=== PATIENT | male | born 1980 | race Caucasian/White ===

== ENCOUNTER 2018-06-25 07:05 | Inpatient (IN) | payer MEDICAID ==
[~2018-06-25] VITALS: Ht 170.2 cm; Wt 81.1 kg
[2018-06-25] VITALS (20 sets, daily range): BP systolic 117–176; BP diastolic 60–95; PULSE 54–104; RESP 10–59; Ht 170.2 cm; Wt 81.1 kg
[2018-06-25] MEDS ORDERED: ONDANSETRON (ODT) 4 MG TAB ODT STA (07:34)
[2018-06-25] MEDS ORDERED: ONDANSETRON 4 MG INJ IV STA (08:28)
[2018-06-25] MEDS ORDERED: morphine 4 MG/ML VIAL IV STA (08:28)
[2018-06-25] MEDS ORDERED: SOD CHLORIDE 0.9% 1,000 ML IV STA (08:28)
[2018-06-25] MEDS ORDERED: PIPER-TAZO 3.375 GM IV (PMX) 100 ML IVPB ONE (08:30)
--- NOTE | 2018-06-25 08:48 | ERD ---
ER Documentation Chief Complaint Chief Complaint ABD PAIN, NAUSEA VOMITINT DIARRHEA, FEVER HPI 38 yr old male complaining of nausea and vomiting with abdominal pain. Patient has had tactile fevers. Patient took ranitidine at home but no other medications. Denies medical problems. NKDA. Surgical history denies. Social history denies ROS All systems reviewed and are negative except as per history of present illness. Allergies Allergies: Coded Allergies: No Known Allergy (Unverified , 06/25/18) PMhx/Soc Medical and Surgical Hx: pt denies Medical Hx, pt denies Surgical Hx History of Surgery: No Anesthesia Reaction: No Hx Neurological Disorder: No Hx Respiratory Disorders: No Hx Cardiac Disorders: No Hx Psychiatric Problems: No Hx Miscellaneous Medical Probl: No Hx Alcohol Use: Yes (OOC) Hx Substance Use: No Hx Tobacco Use: No Smoking Status: Never smoker FmHx Family History: No diabetes, No coronary disease, No other Physical Exam Vitals Vital Signs Date Temp Pulse Resp B/P (MAP) Pulse Ox O2 O2 Flow FiO2 Time Delivery Rate 06/25/18 98.4 54 17 136/91 99 07:09 (106) Physical Exam GENERAL: The patient is well-appearing, well-nourished, in no acute distress CHEST: Clear to auscultation bilaterally. There are no rales, wheezes or rhonchi. HEART: Regular rate and rhythm. No murmurs, clicks, rubs or gallops. No S3 or S4. ABDOMEN: Normal active bowel sounds. No distention. No organomegaly. Mild tenderness palpation in the lower pelvic region extending to the right lower quadrant. BACK: No midline or flank tenderness. Result Diagram: 06/25/18 0743 06/25/18 0743 Results 24 hrs Laboratory Tests Test 06/25/18 07:43 White Blood Count 12.8 10^3/ul Red Blood Count 4.82 10^6/ul Hemoglobin 13.7 g/dl Hematocrit 42.0 % Mean Corpuscular Volume 87.1 fl Mean Corpuscular Hemoglobin 28.4 pg Mean Corpuscular Hemoglobin Concent 32.6 g/dl Red Cell Distribution Width 12.7 % Platelet Count 177 10^3/UL Mean Platelet Volume 9.0 fl Immature Granulocytes % 0.300 % Neutrophils % 88.0 % Lymphocytes % 8.1 % Monocytes % 3.3 % Eosinophils % 0.1 % Basophils % 0.2 % Nucleated Red Blood Cells % 0.0 /100WBC Immature Granulocytes # 0.040 10^3/ul Neutrophils # 11.3 10^3/ul Lymphocytes # 1.0 10^3/ul Monocytes # 0.4 10^3/ul Eosinophils # 0.0 10^3/ul Basophils # 0.0 10^3/ul Nucleated Red Blood Cells # 0.0 10^3/ul Urine Color YELLOW Urine Clarity CLEAR Urine pH 5.0 Urine Specific [place] 1.021 Urine Ketones NEGATIVE mg/dL Urine Nitrite NEGATIVE mg/dL Urine Bilirubin NEGATIVE mg/dL Urine Urobilinogen NEGATIVE mg/dL Urine Leukocyte Esterase NEGATIVE [place]/ul Urine Hemoglobin NEGATIVE mg/dL Urine Glucose NEGATIVE mg/dL Urine Total Protein NEGATIVE mg/dl Sodium Level 140 mmol/L Potassium Level 4.6 mmol/L Chloride Level 103 mmol/L Carbon Dioxide Level 27 mmol/L Anion Gap 10 Blood Urea Nitrogen 13 mg/dl Creatinine 0.85 mg/dl Est Glomerular Filtrat Rate mL/min > 60 mL/min Glucose Level 126 mg/dl Calcium Level 9.5 mg/dl Total Bilirubin 0.2 mg/dl Direct Bilirubin 0.00 mg/dl Indirect Bilirubin 0.2 mg/dl Aspartate Amino Transf (AST/SGOT) 29 IU/L Alanine Aminotransferase (ALT/SGPT) 10 IU/L Alkaline Phosphatase 65 IU/L Total Protein 7.9 g/dl Albumin 4.8 g/dl Globulin 3.10 g/dl Albumin/Globulin Ratio 1.54 Lipase 33 U/L Current Medications Medications Dose Sig/Leola Start Time Status Last (Trade) Ordered Route PRN Stop Time Admin Dose Reason Admin Ondansetron 4 mg ONCE STAT 06/25/18 DC 06/25/18 HCl (Zofran ODT 07:34 08:09 Odt) 06/25/18 07:36 Sodium 1,000 ml @ Q1H STAT 06/25/18 Chloride 1,000 mls/hr IV 08:28 06/25/18 09:27 Morphine 4 mg ONCE STAT 06/25/18 DC Sulfate IV 08:28 (morphine) 06/25/18 08:29 Ondansetron 4 mg ONCE STAT 06/25/18 DC HCl (Zofran IV 08:28 Inj) 06/25/18 08:29 Piperacillin 100 ml @ ONCE ONCE 06/25/18 Sod/ 200 mls/hr IVPB 08:30 Tazobactam 06/25/18 08:59 Sod Ondansetron 4 mg BRIDGE ORDER 06/25/18 HCl (Zofran PRN IV 09:00 Inj) NAUSEA AND/OR 06/26/18 08:59 VOMITING 650 mg ER BRIDGE 06/25/18 Acetaminophen PRN PO MILD 09:00 (Tylenol PAIN(1-3)OR 06/26/18 08:59 Tab) ELEVATED TEMP Procedures/MDM DIAGNOSTIC IMAGING REPORT Patient: OSMIN CHAPARRO : 1980 Age: 38 Sex: M MR #: [id number] DOS: 06/25/18 0734 Ordering MD: LAN PAGAN PA-C Location: [facility] Room/Bed: PROCEDURE: CT Abdomen and Pelvis without contrast. CLINICAL INDICATION: Abdominal pain. TECHNIQUE: Routine axial tomographic images of the abdomen and pelvis were obtained from the domes the diaphragm to the symphysis pubis. The patient was scanned withoutoral or intravenous contrast. Coronal and sagittal reformatted images were obtained from the axial source images. Images were reviewed on a high-resolution PACS workstation. The total exam CTDI equals 10.02 mGy and the total exam DLP equals 557.39 mGy-cm. One or more of the following dose reduction techniques were used: Automated exposure control, adjustment of the mA and / or kV according to patient size, or use of iterative reconstruction technique. DICOM images are available. COMPARISON: None. FINDINGS: The visualized portions of the lung bases are clear. Evaluation of the intra-abdominal solid organs is somewhat limited on this noncontrast examinati on. The liver appears normal in size. There is no intra or extrahepatic biliary dilatation. The gallbladder is unremarkable by CT criteria. The spleen, pancreas, and adrenal glands are unremarkable. The kidneys are symmetric in size. No renal, ureteral, or bladder calculi are identified. No perinephric inflammatory changes are identified. The urinary bladder is grossly unremarkable. The bowel demonstrates normal course and caliber. There is no evidence of bowel obstruction. The appendix is thickened measuring 14 mm in diameter, and contains multiple appendicoliths. No significant periappendiceal fat stranding is noted. The pelvic organs are grossly unremarkable. No intraperitoneal free fluid, free air, or abscess is identified. No retroperitoneal, mesenteric, or inguinal lymphadenopathy is identified. The aorta is normal in caliber. The osseous structures demonstrate anterior fusion of the sacroiliac joints. No significant subcutaneous soft tissue abnormalities are seen. IMPRESSION: 1. Limited noncontrast CT of the abdomen and pelvis. The appendix is thickened measuring 14 mm in diameter, with multiple small appendicoliths. No significant periappendiceal inflammatory changes are noted. Findings are equivocal for acute appendicitis. Clinical correlation required. If clinical findings available, consider contrast enhanced imaging to assess for wall hyperemia another more subtle inflammatory changes. 2. Anterior fusion of the sacroiliac joints. ER course: 1 L normal saline given ED. Morphine, Zofran and IV Zosyn given ED. Patient stable. MDM: 38-year-old male presenting with vomiting abdominal pain. Patient CT scan shows acute appendicitis. Dr. Guthrie was consulted and facilitated an admission. Patient is stable and aware of diagnosis. Patient will be admitted to the hospital for higher level care and surgical consultation. Patient is stable at the time of admission. I have low suspicion for other acute abdominal emergencies. I have low suspicion for sepsis. All questions answered at the time of admission TESS PAGAN PA-C Jun 25, 2018 08:48
[2018-06-25] MEDS ORDERED: ACETAMINOPHEN 325 MG TAB PO PRN (09:00)
[2018-06-25] MEDS ORDERED: ONDANSETRON 4 MG INJ IV PRN ×4 (09:00→22:00)
--- NOTE | 2018-06-25 09:22 | QN ---
Documentation Comment I have seen and evaluated the patient along with the PA and/or GAS PLANT TECHNICIAN provider. I agree with the evaluation and plan of care. Please see their documentation for full ER course and evaluation. In short: Migratory pain to the right lower quadrant On exam: Focal tenderness to the right lower quadrant McBurney's point CT: IMPRESSION: 1. Limited noncontrast CT of the abdomen and pelvis. The appendix is thickened measuring 14 mm in diameter, with multiple small appendicoliths. No significant periappendiceal inflammatory changes are noted. Findings are equivocal for acute appendicitis. Clinical correlation required. If clinical findings available, consider contrast enhanced imaging to assess for wall hyperemia another more subtle inflammatory changes. 2. Anterior fusion of the sacroiliac joints. RPTAT: Assessment and plan: Clinical exam history and CT consistent with acute appendicitis. Patient is n.p.o. IV fluids antibiotics provided. I spoke to Dr. Thayer who has accepted the case. Accepting care team and consultations: I discussed the current laboratory data, diagnostic imaging and emergency care provided. Admitting team: Dr. Subramanian Admitting team indication: Insurance directed DIMITRY DAVIS MD Jun 25, 2018 09:22
[2018-06-25] MEDS ORDERED: NACL 0.9% 3 ML SYG IV SCH (10:00)
--- NOTE | 2018-06-25 10:01 | HP ---
Date/Time of Note Date/Time of Note DATE: 06/25/18 TIME: 09:54 Assessment/Plan VTE Prophylaxis SCD applied (from Nsg): Yes Pharmacological prophylaxis: NA/contraindicated Pharm contraindication: low risk/ambulating Lines/Catheters IV Catheter Type (from Nrsg): Saline Lock Assessment/Plan Assessment/Plan 38M no PMH presents with acute appy #Acute appendicitis - IV fluids, NPO - IV morphine prn pain - Zosyn q6h until surgery - Dr Thayer consulted in ED. - Patient is medically optimized for lap vs open appendectomy. He has no RCRI risk factors. No further cardiac or medical workup needed prior to surgery. DVT: SCDs GI: None Result Diagram: 06/25/18 0743 06/25/18 0743 Results 24hrs Laboratory Tests Test 06/25/18 07:43 White Blood Count 12.8 H Red Blood Count 4.82 Hemoglobin 13.7 L Hematocrit 42.0 Mean Corpuscular Volume 87.1 Mean Corpuscular Hemoglobin 28.4 L Mean Corpuscular Hemoglobin Concent 32.6 Red Cell Distribution Width 12.7 Platelet Count 177 Mean Platelet Volume 9.0 Immature Granulocytes % 0.300 Neutrophils % 88.0 H Lymphocytes % 8.1 L Monocytes % 3.3 Eosinophils % 0.1 Basophils % 0.2 Nucleated Red Blood Cells % 0.0 Immature Granulocytes # 0.040 H Neutrophils # 11.3 H Lymphocytes # 1.0 Monocytes # 0.4 Eosinophils # 0.0 Basophils # 0.0 Nucleated Red Blood Cells # 0.0 Urine Color YELLOW Urine Clarity CLEAR Urine pH 5.0 Urine Specific [place] 1.021 Urine Ketones NEGATIVE Urine Nitrite NEGATIVE Urine Bilirubin NEGATIVE Urine Urobilinogen NEGATIVE Urine Leukocyte Esterase NEGATIVE Urine Hemoglobin NEGATIVE Urine Glucose NEGATIVE Urine Total Protein NEGATIVE Sodium Level 140 Potassium Level 4.6 Chloride Level 103 Carbon Dioxide Level 27 Anion Gap 10 Blood Urea Nitrogen 13 Creatinine 0.85 Est Glomerular Filtrat Rate mL/min > 60 Glucose Level 126 Calcium Level 9.5 Total Bilirubin 0.2 Direct Bilirubin 0.00 Indirect Bilirubin 0.2 Aspartate Amino Transf (AST/SGOT) 29 Alanine Aminotransferase (ALT/SGPT) 10 L Alkaline Phosphatase 65 Total Protein 7.9 Albumin 4.8 Globulin 3.10 Albumin/Globulin Ratio 1.54 Lipase 33 HPI/ROS Admit Date/Time Admit Date/Time Jun 25, 2017 Hx of Present Illness Mr. Lopez is a pleasant 38 yo man who presents with acute abdominal pain. Two days ago he noticed cramping, sharp epigastric pain and headache. Yesterday he developed fever, chills, nausea, nonbloody vomiting, diarrhea and the pain migrated to his lower mid abdomen and worsened significantly. He also has some chronic sinus stuffiness and cannot breathe through his nose. Lots of mucous, sore throat no cough. In the ED he arrived afebrile, VSS. WBC 12.8. Otherwise labs unremarkable. CT confirms acute appy with appendicoliths. ROS Denies weight loss, night sweats, vision changes, dizziness, cough, chest pain/pressure/palpitations, muscle weakness, numbness, tingling, dysuria, hematuria. PMH/Family/Social Past Medical History Medical History: no pertinent history Medications Current Medications Ondansetron HCl (Zofran Inj) 4 mg BRIDGE ORDER PRN IV NAUSEA AND/OR VOMITING; Start 06/25/18 at 09:00; Stop 06/26/18 at 08:59 Acetaminophen (Tylenol Tab) 650 mg ER BRIDGE PRN PO MILD PAIN(1-3)OR ELEVATED TEMP; Start 06/25/18 at 09:00; Stop 06/26/18 at 08:59 Coded Allergies: No Known Allergy (Unverified , 06/25/18) Past Surgical History Past Surgical Hx: no surgical history Family History Significant Family History: no pertinent family hx Social History Alcohol Use: occasionally (6-12 beers on weekends) Smoking Status: Never smoker Drug Use: none Exam/Review of Systems Vital Signs Vitals Vital Signs Date Temp Pulse Resp B/P (MAP) Pulse Ox O2 O2 Flow FiO2 Time Delivery Rate 06/25/18 98.7 89 17 130/84 100 Room Air 09:49 (99) Exam Exam Gen: Well appearing man well nourished in no acute distress Eyes: PERRL, no icterus HEENT: clear oropharynx, no ulcer, moist mucous membranes. Neck: No lymphadenopathy no tenderness Card: Regular rate and rhythm no murmurs Pulm: Clear to auscultation bilaterally no rales or wheezes Abd: Soft, nondistended. TTP across lower abdomen diffusely with no guarding and no rebound tenderness. Not much tenderness above umbilicus. Ext: No cyanosis, no edema Skin: warm dry well perfused GUILLERMO LOVE MD Jun 25, 2018 10:01
[2018-06-25] MEDS ORDERED: morphine SULFATE/PF (2 MG/2 ML) SYG IV PRN (10:30)
[2018-06-25] MEDS: SOD CHLORIDE 0.9% 1,000 ML IV SCH ×2 (10:51→19:51)
[2018-06-25] MEDS: PIPER-TAZO 3.375 GM IV (PMX) 100 ML IVPB SCH ×3 (13:58→23:24)
--- NOTE | 2018-06-25 16:48 | CONS ---
Date/Time of Note Date/Time of Note DATE: 06/25/18 TIME: 16:45 Assessment/Plan Assessment/Plan Assessment/Plan acute appendicitis , without signs of perforation . elevated WBC , Suggest laparoscopic appendectomy , possible open , risks benefits and alternatives discussed , patient willing to proceed . Result Diagram: 06/25/18 0743 06/25/18 0743 Results 24hrs Laboratory Tests Test 06/25/18 07:43 White Blood Count 12.8 H Red Blood Count 4.82 Hemoglobin 13.7 L Hematocrit 42.0 Mean Corpuscular Volume 87.1 Mean Corpuscular Hemoglobin 28.4 L Mean Corpuscular Hemoglobin Concent 32.6 Red Cell Distribution Width 12.7 Platelet Count 177 Mean Platelet Volume 9.0 Immature Granulocytes % 0.300 Neutrophils % 88.0 H Lymphocytes % 8.1 L Monocytes % 3.3 Eosinophils % 0.1 Basophils % 0.2 Nucleated Red Blood Cells % 0.0 Immature Granulocytes # 0.040 H Neutrophils # 11.3 H Lymphocytes # 1.0 Monocytes # 0.4 Eosinophils # 0.0 Basophils # 0.0 Nucleated Red Blood Cells # 0.0 Urine Color YELLOW Urine Clarity CLEAR Urine pH 5.0 Urine Specific [place] 1.021 Urine Ketones NEGATIVE Urine Nitrite NEGATIVE Urine Bilirubin NEGATIVE Urine Urobilinogen NEGATIVE Urine Leukocyte Esterase NEGATIVE Urine Hemoglobin NEGATIVE Urine Glucose NEGATIVE Urine Total Protein NEGATIVE Sodium Level 140 Potassium Level 4.6 Chloride Level 103 Carbon Dioxide Level 27 Anion Gap 10 Blood Urea Nitrogen 13 Creatinine 0.85 Est Glomerular Filtrat Rate mL/min > 60 Glucose Level 126 Calcium Level 9.5 Total Bilirubin 0.2 Direct Bilirubin 0.00 Indirect Bilirubin 0.2 Aspartate Amino Transf (AST/SGOT) 29 Alanine Aminotransferase (ALT/SGPT) 10 L Alkaline Phosphatase 65 Total Protein 7.9 Albumin 4.8 Globulin 3.10 Albumin/Globulin Ratio 1.54 Lipase 33 Consultation Date/Type/Reason Admit Date/Time Jun 25, 2017 Date of Consultation: Jun 25, 2018 Type of Consult surgery consult Reason for Consultation suspect appendicitis , abdominal pain x 2 days Requesting Provider: GUILLERMO LOVE MD Hx of Present Illness patient presented with 2 days worsening abdominal pain , right lower abdomen , CT suggestive of acute appendicitis , wihtout signs of abscess Past Medical History Medical History: no pertinent history Medications Current Medications Sodium Chloride 1,000 ml @ 100 mls/hr Q10H IV Last administered on 06/25/18at 10:51; Admin Dose 100 MLS/HR; Start 06/25/18 at 09:51 IV Flush (NS 3 ml) 3 ml PER PROTOCOL IV ; Start 06/25/18 at 10:00 Ondansetron HCl (Zofran Inj) 4 mg Q6H PRN IV NAUSEA AND/OR VOMITING; Start 06/25/18 at 10:00 Morphine Sulfate (morphine SULFATE (PF)) 2 mg Q4H PRN IV SEVERE PAIN LEVEL 7- 10; Start 06/25/18 at 10:30 Piperacillin Sod/ Tazobactam Sod 100 ml @ 200 mls/hr Q6 IVPB Last administered on 06/25/18at 13:58; Admin Dose 200 MLS/HR; Start 06/25/18 at 13:00 Allergies: Coded Allergies: No Known Allergy (Unverified , 06/25/18) Past Surgical History Past Surgical Hx: no surgical history Social History Alcohol Use: occasionally (6-12 beers on weekends) Smoking Status: Never smoker Drug Use: none Exam/Review of Systems Vital Signs Vitals Vital Signs Date Temp Pulse Resp B/P (MAP) Pulse Ox O2 O2 Flow FiO2 Time Delivery Rate 06/25/18 99.8 55 18 121/60 99 10:25 (80) 06/25/18 Room Air 09:49 Exam Gastrointestinal: tender (right lower quadrant ) Medications Medications Current Medications Sodium Chloride 1,000 ml @ 100 mls/hr Q10H IV Last administered on 06/25/18at 10:51; Admin Dose 100 MLS/HR; Start 06/25/18 at 09:51 IV Flush (NS 3 ml) 3 ml PER PROTOCOL IV ; Start 06/25/18 at 10:00 Ondansetron HCl (Zofran Inj) 4 mg Q6H PRN IV NAUSEA AND/OR VOMITING; Start 06/25/18 at 10:00 Morphine Sulfate (morphine SULFATE (PF)) 2 mg Q4H PRN IV SEVERE PAIN LEVEL 7- 10; Start 06/25/18 at 10:30 Piperacillin Sod/ Tazobactam Sod 100 ml @ 200 mls/hr Q6 IVPB Last administered on 06/25/18at 13:58; Admin Dose 200 MLS/HR; Start 06/25/18 at 13:00 ANTONIA SCHMITT MD Jun 25, 2018 16:48
[2018-06-25] MEDS ORDERED: ROPIVACAINE 0.5 % 30 ML VIAL ONE (20:44)
[2018-06-25] MEDS ORDERED: MIDAZOLAM 1 MG/ML 2 ML INJ ONE (20:44)
[2018-06-25] MEDS ORDERED: ROCURONIUM 50 MG INJ ONE ×2 (20:44→21:25)
[2018-06-25] MEDS ORDERED: ONDANSETRON 4 MG INJ ONE (20:44)
[2018-06-25] MEDS ORDERED: KETOROLAC 30 MG INJ ONE (20:44)
[2018-06-25] MEDS ORDERED: PROPOFOL 20 ML ONE (20:44)
[2018-06-25] MEDS ORDERED: METOCLOPRAMIDE 10 MG INJ ONE (20:44)
--- NOTE | 2018-06-25 20:48 | PREAC ---
Date/Time of Note Date/Time of Note DATE: 06/25/18 TIME: 20:47 Anesthesia Eval and Record Evaluation Time Pre-Procedure Interview DATE: 06/25/18 TIME: 20:47 Age 38 Sex male NPO: 8 hrs Preoperative diagnosis acute appendicits Planned procedure lap appy Past Medical History Past Medical History: None Surgery & Anesthesia Issues No known issue Meds Anticoagulation: No Beta Jacqueline within 24 hr: No Reason Beta Jacqueline not given: Pt. not on B-Jacqueline No Active Prescriptions or Reported Meds Current Medications Sodium Chloride 1,000 ml @ 100 mls/hr Q10H IV Last administered on 06/25/18at 10:51; Admin Dose 100 MLS/HR; Start 06/25/18 at 09:51 IV Flush (NS 3 ml) 3 ml PER PROTOCOL IV ; Start 06/25/18 at 10:00 Ondansetron HCl (Zofran Inj) 4 mg Q6H PRN IV NAUSEA AND/OR VOMITING; Start 06/25/18 at 10:00 Morphine Sulfate (morphine SULFATE (PF)) 2 mg Q4H PRN IV SEVERE PAIN LEVEL 7- 10; Start 06/25/18 at 10:30 Piperacillin Sod/ Tazobactam Sod 100 ml @ 200 mls/hr Q6 IVPB Last administered on 06/25/18at 17:45; Admin Dose 200 MLS/HR; Start 06/25/18 at 13:00 Meds reviewed: Yes Allergies Coded Allergies: No Known Allergy (Unverified , 06/25/18) Allergies Reviewed: Yes Labs/Studies Labs Reviewed: Reviewed by anesthesiologist Result Diagram: 06/25/18 0743 06/25/18 0743 Laboratory Tests 06/25/18 07:43 test: N/A Studies: ECG (n/a), CXR (n/a) Pre-procedure Exam Last vitals Vital Signs Date Temp Pulse Resp B/P (MAP) Pulse Ox O2 O2 Flow FiO2 Time Delivery Rate 06/25/18 98.4 74 18 128/70 99 Room Air 20:12 (89) Airway: Adequate mouth opening Mallampati: Mallampati I Teeth: Normal Lung: Normal Heart: Normal ASA Physical Status ASA physical status: 1 Emergency: None Planned Anesthetic General/MAC: ETT Nerve block: TAP (bilateral) Planned Pain Management Single shot nerve block, Parenteral pain med Pre-operative Attestations Prior to commencing anesthesia and surgery, the patient was re-evaluated, there was verification of: *The patient's identity *The results of appropriate recent lab work and preoperative vital signs *The above evaluation not changing prior to induction *Anesthetic plan, risk benefits, alternative and complications discussed with patient/family; questions answered; patient/family understands, accepts and wishes to proceed. SAUNDRA VALDIVIA MD Jun 25, 2018 20:48
[2018-06-25] MEDS ORDERED: BUPIVACAINE 0.5%/EPI (SDV) 30 ML INJ ONE (20:52)
[2018-06-25] MEDS ORDERED: GLYCOPYRROLATE 0.4 MG INJ ONE (21:25)
[2018-06-25] MEDS ORDERED: NEOSTIGMINE 3 MG/3 ML SYRINGE ONE ×2 (21:25→22:15)
[2018-06-25] MEDS ORDERED: MEPERIDINE 25 MG INJ IV PRN (21:30)
[2018-06-25] MEDS ORDERED: DIPHENHYDRAMINE 50 MG INJ IV PRN (21:30)
[2018-06-25] MEDS ORDERED: HYDROmorphONE 1 MG/5 ML IV SYRINGE IV PRN ×3 (21:30)
[2018-06-25] MEDS ORDERED: D5W-0.45 NACL + KCL 20 MEQ 1,000 ML IV SCH (21:47)
--- NOTE | 2018-06-25 21:47 | OPR ---
Date/Time of Note Date/Time of Note DATE: 06/25/18 TIME: 21:43 Operative Report Free Text/Dictation Laparoscopic appendectomy Procedure Date: Jun 25, 2018 Preoperative Diagnosis Acute appendicitis Postoperative Diagnosis Same Operation/Procedure Performed Laparoscopic appendectomy Surgeon Antonia Thayer MD see signature line Paint Preparer None Anesthesia Type: general Anesthesiologist: SAUNDRA VALDIVIA MD Estimated Blood Loss: minimal Transfusion none Specimen Appendix Grafts/Implants none Tubes/Drains None Complications none Pt Condition Post Procedure: stable Disposition: PACU Indications Signs and symptoms of acute appendicitis documented by CAT scan and labs and physical exam advised to undergo and agreed to proceed with laparoscopic appendectomy after informed consent obtained risk benefits and alternatives were discussed Procedure Description Patient brought to the operating room placed in supine position general she is administered with intubation patient prepped draped in standard sterile fashion timeout was completed A Veress needle was used to enter the abdomen at Watts's point and insufflation delivered to maintain pneumoperitoneum at 15 mmHg throughout the procedure small stab incision was made just above the umbilicus and a 5 mm trocar was inserted under direct visualization with 30 degree 5 mm scope. The Veress needle was identified and removed the infraumbilical stab incision was made for a 5 mm trocar and a suprapubic incision made for 12 mm trocar. The right lower quadrant was explored there was a thickened appendix quickly identified with ad hesions of omentum covering this. These were taken down retroperitoneal attachments were divided with hook cautery the appendix was then elevated and a window was made in the mesoappendix. A [place] vascular 35 mm MERISSA was used to divide the appendix at the base and a second application to divide the mesoappendix staple lines were inspected and good hemostasis was slight any slight oozing was controlled with monopolar cautery. A specimen bag was then inserted through the suprapubic port and the appendix placed and this was brought through the port the port was then we inserted a gauze which had been placed for drying some of the blood from dissection was removed and hemostasis was excellent. The insufflation was halted under direct visualization the troch ars were removed after pneumoperitoneum was allowed to escape. Skin incision closed with 4-0 Monocryl and Dermabond for dressing. The patient was explained the operative brought recovery in stable condition ANTONIA THAYER MD Jun 25, 2018 21:47
[2018-06-25] MEDS ORDERED: SUGAMMADEX SODIUM 200 MG/2 ML VIAL IV ONE (21:55)
[2018-06-25] MEDS ORDERED: KETOROLAC 30 MG INJ IV PRN (22:00)
[2018-06-25] MEDS ORDERED: HYDROmorphONE 0.5 MG/0.5 ML SYG IV PRN (22:00)
[2018-06-26 00:11] VITALS: BP 132/70; PULSE 57; RESP 18
[2018-06-26 01:39] VITALS: BP 122/75; PULSE 62; RESP 18
[2018-06-26] MEDS: SOD CHLORIDE 0.9% 1,000 ML IV SCH (05:14)
[2018-06-26] MEDS: PIPER-TAZO 3.375 GM IV (PMX) 100 ML IVPB SCH ×2 (06:27→12:56)
[2018-06-26] MEDS ORDERED: ENOXAPARIN 40 MG/0.4 ML SYG SC SCH (07:00)
[2018-06-26 08:30] VITALS: BP 130/72; PULSE 67; RESP 18
--- NOTE | 2018-06-26 09:40 | PAC ---
Date/Time of Note Date/Time of Note DATE: 06/26/18 TIME: 09:40 Post-Anesthesia Notes Post-Anesthesia Note Last documented vital signs Vital Signs Date Temp Pulse Resp B/P (MAP) Pulse Ox O2 O2 Flow FiO2 Time Delivery Rate 06/26/18 99.2 62 18 122/75 97 Room Air 01:39 (91) 06/25/18 10.0 21:59 Activity: WNL Respiratory function: WNL Cardiovascular function: WNL Mental status: Baseline Pain reasonably controlled: Yes Hydration appropriate: Yes Nausea/Vomiting absent: No SAUNDRA VALDIVIA MD Jun 26, 2018 09:40
--- NOTE | 2018-06-26 12:41 | PDOCDIS ---
Discharge Instructions DIAGNOSIS Discharge Diagnosis Appendicitis CONDITION [id number] Patient Condition: [id number] Stable HOME CARE INSTRUCTIONS: [id number] Diet Instructions: [id number] Regular ACTIVITY: [id number] Activity Restrictions: [id number] Slowly Increase Activity Rest between Activity Avoid heavy lifting [id number] Bathing Restrictions: [id number] Shower FOLLOW UP/APPOINTMENTS Follow-up Plan Make an appointment to see Dr Randall Thayer in clinic in the next 1-2 weeks. His phone number is ASAF SIMS MD Jun 26, 2018 12:41
--- NOTE | 2018-06-26 13:00 | DS ---
Date/Time of Note Date/Time of Note DATE: 06/26/18 TIME: 13:00 Discharge Summary Admission/Discharge Info Admit Date/Time Jun 25, 2018 at 08:39 Discharge Date/Time Discharge Diagnosis Appendicitis Patient Condition: Stable Hospital Course Patient presented with abdominal pain. CT showed appendicitis. Treated wtih IV zosyn. Taken to the OR by Dr Thayer who performed appendectomy without complication. Discharged to home POD1 Home Meds No Active Prescriptions or Reported Meds Follow-up Plan Make an appointment to see Dr Randall Thayer in clinic in the next 1-2 weeks. His phone number is Primary Care Provider Care Physician No Primary Pending Labs Laboratory Tests Test 06/26/18 04:31 White Blood Count 10.1 10^3/ul (4.8-10.8) Red Blood Count 4.12 10^6/ul (4.70-6.10) Hemoglobin 11.8 g/dl (14.0-18.0) Hematocrit 36.0 % (42.0-52.0) Mean Corpuscular Volume 87.4 fl (82.0-101.0) Mean Corpuscular Hemoglobin 28.6 pg (29.0-33.0) Mean Corpuscular Hemoglobin Concent 32.8 g/dl (32.0-37.0) Red Cell Distribution Width 12.9 % (11.5-14.5) Platelet Count 167 10^3/UL (140-415) Mean Platelet Volume 9.6 fl (7.4-10.4) Immature Granulocytes % 0.300 % (0.001-0.429) Neutrophils % 71.0 % (39.0-77.0) Lymphocytes % 22.0 % (15.0-51.0) Monocytes % 6.5 % (0.0-11.0) Eosinophils % 0.1 % (0.0-7.0) Basophils % 0.1 % (0.0-2.0) Nucleated Red Blood Cells % 0.0 /100WBC (0.0-0.0) Immature Granulocytes # 0.030 10^3/ul (0.0-0.031) Neutrophils # 7.2 10^3/ul (1.6-7.5) Lymphocytes # 2.2 10^3/ul (0.8-2.9) Monocytes # 0.7 10^3/ul (0.3-0.9) Eosinophils # 0.0 10^3/ul (0.0-0.5) Basophils # 0.0 10^3/ul (0.0-0.1) Nucleated Red Blood Cells # 0.0 10^3/ul (0.0-0.0) Sodium Level 141 mmol/L (135-144) Potassium Level 4.5 mmol/L (3.5-5.1) Chloride Level 105 mmol/L (97-110) Carbon Dioxide Level 26 mmol/L (21-31) Anion Gap 10 (5-13) Blood Urea Nitrogen 11 mg/dl (7-20) Creatinine 0.96 mg/dl (0.61-1.24) Est Glomerular Filtrat Rate mL/min > 60 mL/min (>60) Glucose Level 111 mg/dl (70-220) Hemoglobin A1c 5.4 % (0-5.9) Calcium Level 8.7 mg/dl (8.4-10.2) Phosphorus Level 4.3 mg/dl (2.5-4.9) Magnesium Level 1.9 mg/dl (1.7-2.5) Total Bilirubin 0.6 mg/dl (0.2-1.3) Direct Bilirubin 0.00 mg/dl (0.00-0.20) Indirect Bilirubin 0.6 mg/dl (0-1.1) Aspartate Amino Transf (AST/SGOT) 17 IU/L (15-46) Alanine Aminotransferase (ALT/SGPT) 17 IU/L (13-69) Alkaline Phosphatase 38 IU/L (42-121) Total Protein 6.5 g/dl (6.1-8.1) Albumin 3.7 g/dl (3.3-4.9) Globulin 2.80 g/dl (1.3-3.2) Albumin/Globulin Ratio 1.32 Thyroid Stimulating Hormone (TSH) 0.840 MIU/L (0.465-4.680) ASAF SIMS MD Jun 26, 2018 13:00
[2018-06-26 14:20] VITALS: BP 126/70; PULSE 66; RESP 18
== END 2018-06-26 14:49 | disposition home or self-care (01) | DRG 343 ==
LOC: FTE 07:05 → MS1 08:39 → EDBEDREQ 08:44
PROVIDERS: ADMIT Family Medicine; ATTEND Family Medicine
PROC: 0DTJ4ZZ Resection of Appendix, Percutaneous Endoscopic Approach (ICD-10-PCS; principal; 2018-06-25 19:00)
DX: K35.80 Unspecified acute appendicitis (principal)
CPT/HCPCS: 36415; 74176; 80053; 81003; 83036; 83690; 83735; 84100; 84443; 85025; 88304; 96374; J1170; J1650; J1885; J2175; J2250; J2270; J2405; J2543; J2710; J2765; J2795; J3480; J7030